=== PATIENT | male | born 1950 | race Caucasian/White ===

== ENCOUNTER → 2024-10-06 | Outpatient (CLI) | payer MEDICARE ==
--- NOTE | 2024-10-06 09:51 | US ---
EXAMINATION TYPE: US liver DATE OF EXAM: 10/06/2024 COMPARISON: NONE CLINICAL INDICATION: Male, 74 years old with history of K74.60 UNSPECIFIED CIRRHOSIS OF LIVER; Cirrho sis. Hx kidney stones. TECHNIQUE: Grayscale and color Doppler imaging of the right upper quadrant. FINDINGS: EXAM MEASUREMENTS: Liver Length: 15.2 cm Gallbladder Wall: 0.3 cm CBD: Obscured, color Doppler imaging was utilized to isolate the common bile duct for measurement. Right Kidney: 11.7 x 5.6 x 4.5 cm LOTTERY MANAGER NOTES: Exam is limited due to gas. Pancreas: Small portion seen. Not well visualized. Liver: *Increased echogenicity. Very heterogeneous and coarse in echotexture. Unable to visualiz e any distinct masses- but limited evaluation. Hypoechoic, heterogeneous tissue throughout. Gallbladder: Appears anechoic Evidence for sonographic Florian's sign: No CBD: Obscured Right Kidney: *Anechoic area seen inferior = 2.1 x 1.9 x 2.3 cm. *Anechoic fluid-appearing area seen lateral/inferior = 1.2 x 1.0 x 0.9 cm. The visualized portions of the pancreas are unremarkable. Diffusely increased echogenicity with heter ogenous coarsened echotexture. This appearance limits evaluation for small intrahepatic masses. No gr oss evidence of mass. No overt surface nodularity. Gallbladder demonstrates no wall thickening, stone s, or surrounding fluid. Negative sonographic Florian's sign. Common bile duct is obscured by overlyin g bowel gas. Inferior pole right renal simple cyst. Trace anechoic fluid seen adjacent to the right k idney along its lateral/inferior aspect. No shadowing renal calculus identified. IMPRESSION: 1. Diffusely heterogenous coarsened echotexture to the liver with increased echogenicity most consis tent with hepatocellular disease. No overt surface nodularity. Findings may relate to reported histor y of hepatic cirrhosis. No gross evidence of mass. 2. Common bile duct is obscured by overlying bowel gas. 3. Right renal simple cyst with right renal trace simple fluid along the lateral/inferior aspect. [facility], , 10/06/2024 9:48 AM
[2024-10-06 15:18] LABS: ALT 137 U/L (10-49); AST 58 U/L (14-35); Albumin 4.2 g/dL (3.8-4.9); Albumin/Globulin Ratio 1.83 Ratio (1.60-3.17); Alkaline Phosphatase 367 U/L (41-126); BUN/Creat Ratio 17.46 Ratio (12.00-20.00); Blood Urea Nitrogen 22.7 mg/dL (9.0-27.0); Carbon Dioxide 22.1 mmol/L (21.6-31.8); Chloride 101 mmol/L (96-109); Globulin 2.3 g/dL (1.6-3.3); Glucose 104 mg/dL (70-110); Potassium 4.6 mmol/L (3.5-5.5); Sodium 140 mmol/L (135-145); Total Bilirubin 0.7 mg/dL (0.3-1.2); Total Protein 6.5 g/dL (6.2-8.2)
[2024-10-06 16:39] LABS: HCT 39.1 % (39.6-50.0); HGB 12.7 g/dL (13.0-17.0); MCH 31.7 pg (27.0-32.0); MCHC 32.5 g/dL (32.0-37.0); MCV 97.5 FL (80.0-97.0); Mean Platelet Volume 10.7 FL (9.5-12.2); NRBC Per 100 WBC 0 X 10*3/uL (0.00-0.01); Platelet Count 344 X 10*3/uL (140-440); RBC 4.01 X 10*6/uL (4.40-5.60); RDW 13.1 % (11.5-14.5); WBC 10.14 X 10*3/uL (4.50-10.00)
== END | disposition home or self-care (01) ==
LOC: RADUSWWP 07:50
PROVIDERS: ATTEND Internal Medicine Gastroenterology
DX: K74.60 Unspecified cirrhosis of liver (principal); N28.1 Cyst of kidney, acquired; K76.9 Liver disease, unspecified; Z87.442 Personal history of urinary calculi
CPT/HCPCS: 76705; 80053; 85027

== ENCOUNTER → 2025-06-08 | Outpatient (CLI) | payer MEDICARE ==
--- NOTE | 2025-06-08 17:30 | MR ---
EXAMINATION TYPE: MR Prostate wo/w con DATE OF EXAM: 06/08/2025 6:53 AM COMPARISON: None. CLINICAL INDICATION: Male, 75 years old with history of R97.20 ELEVATED PSA; Elevated PSA. TECHNIQUE: Multi-planar, multi-sequence imaging of the pelvis is performed prior to and following the uncomplicated administration of bolus intravenous gadolinium. IV Contrast: 9 mL Gadobutrol Interpretive Criteria: PI-RADS v2.1 SERUM PSA: 09/2023=2.93, 04/2025=5.7 SURGICAL PATHOLOGY: No data available. FINDINGS: Prostatic dimensions: 5.1 x 6.9 x 4.7 cm. Ellipsoid Volume:86.60 (PSA density=0.07 ng/mL/mL) CENTRAL GLAND (Central and Transition Zones/CZ+TZ): Multiple bilateral, heterogenous appearing hypertrophic stromal nodules, without suspicious lesion. M edian lobe hypertrophy with protrusion into the base of the bladder. (PI-RADS 2) PERIPHERAL ZONE (PZ): Bilateral linear, indistinct wedgelike areas of low ADC, and low T2 signal, No evidence of masslike a bnormality, or localized perfusional hypervascularity, to further suggest a focus of clinically signi ficant prostate cancer. (PI-RADS 2) SEMINAL VESICLES (SV): Symmetric and unremarkable. PERIPROSTATIC TISSUES: Unremarkable. LYMPH NODES: No enlarged pelvic lymph node. REMAINING PELVIS: Bladder wall is within normal limits given distention. No abnormal free or organized intrapelvic fluid collection. No pathologic bowel dilation or mural thickening. Left fat containing inguinal hernia OSSEOUS STRUCTURES: No suspicious osseous abnormality. IMPRESSION: 1. No specific features for high-risk prostate cancer. Maximum PI-RADS score: 2. 2. Substantial BPH, estimated gland volume 86.60 (PSA density=0.07 ng/mL/mL) 3. No suspicious osseous lesion. No lymphadenopathy. No evidence of prostate adenocarcinoma involving the periprostatic tissues. [facility], , 06/08/2025 5:27 PM
== END | disposition home or self-care (01) ==
LOC: RADMRIMAIN 05:58
PROVIDERS: ATTEND Urology
DX: N40.0 Benign prostatic hyperplasia without lower urinary tract symptoms (principal); R97.20 Elevated prostate specific antigen [PSA]
CPT/HCPCS: 72197; A9585